=== PATIENT | female | born 1960 | race Caucasian/White ===

== ENCOUNTER 2018-07-09 14:23 | Outpatient (RCR) | payer SELFPAY ==
--- NOTE | 2018-07-11 10:01 | General Progress Note ---
Subjective Date patient seen: Jul 09, 2018 HEENT: Reports: no symptoms, eye pain, blurred vision, tearing, double vision, ear pain, ear discharge, nose pain, nose congestion, throat pain, throat swelling, mouth pain, mouth swelling, other Subjective Swelling upper lip s/p vy advancement Objective General Appearance: WD/WN, no apparent distress Neck: non-tender, supple Objective upper lip edematous no sign of infection RAJWINDER POLANCO M.D. Jul 11, 2018 10:01
--- NOTE | 2018-07-11 10:02 | General Progress Note ---
Subjective Date patient seen: Jul 10, 2018 ROS Limited/Unobtainable: No Constitutional: Reports: no symptoms All Systems: reviewed and negative except above Subjective Swelling upper lip s/p vy advancement Objective Objective upper lip edematous but markedly decreased after first HBO2 session, no sign of infection RAJWINDER POLANCO M.D. Jul 11, 2018 10:02
--- NOTE | 2018-07-14 15:16 | General Progress Note ---
Subjective Date patient seen: Jul 11, 2018 All Systems: reviewed and negative except above Subjective Swelling upper lip s/p vy advancement Objective Objective upper lip edematous but markedly decreased after first HBO2 session, no sign of infection RAJWINDER POLANCO M.D. Jul 14, 2018 15:15
--- NOTE | 2018-07-14 21:23 | General Progress Note ---
Assessment/Plan Assessment/Plan May continue HBO but will re-evaluate next week Subjective Date patient seen: Jul 14, 2018 ROS Limited/Unobtainable: No All Systems: reviewed and negative except above Subjective Swelling upper lip s/p vy advancement - reduced but still present. Patient tolerating HBO well, will d/w her further sessions Objective Objective upper lip edematous but markedly decreased after first HBO2 session, still no sign of infection. Possibly cont HBO will reassess next wk RAJWINDER POLANCO M.D. Jul 14, 2018 21:23
--- NOTE | 2018-07-15 21:42 | Consultation ---
History of Present Illness General Date patient seen: Jul 09, 2018 Chief Complaint: swelling after lip procedure Patient History Healthcare decision maker Resuscitation status Advanced Directive on File RAJWINDER POLANCO M.D. Jul 15, 2018 21:42
--- NOTE | 2018-07-15 21:43 | Consultation ---
History of Present Illness General Date patient seen: Jul 10, 2018 Chief Complaint: vy lip advancement with swelling Patient History Healthcare decision maker Resuscitation status Advanced Directive on File Physical Exam Objective Narrative edema of upper lip wnl Assessment/Plan Assessment/Plan contd hbo2 for three more sessions RAJWINDER POLANCO M.D. Jul 15, 2018 21:43
--- NOTE | 2018-07-15 21:44 | Consultation ---
History of Present Illness General Date patient seen: Jul 11, 2018 Chief Complaint: swelling upper lip Patient History Healthcare decision maker Resuscitation status Advanced Directive on File Physical Exam Objective Narrative edema upper lip reduced Assessment/Plan Assessment/Plan contd hbo2 for three more sessions RAJWINDER POLANCO M.D. Jul 15, 2018 21:44
--- NOTE | 2018-07-15 21:45 | Consultation ---
History of Present Illness General Date patient seen: Jul 14, 2018 Chief Complaint: swelling upper lip Patient History Healthcare decision maker Resuscitation status Advanced Directive on File Assessment/Plan Assessment/Plan contd hbo2 for three more sessions RAJWINDER POLANCO M.D. Jul 15, 2018 21:45
== END 2018-07-18 | disposition home or self-care (01) ==
LOC: WCC 14:23
DX: R60.0 Localized edema (principal); R22.0 Localized swelling, mass and lump, head
CPT/HCPCS: G0277; G0463